=== PATIENT | male | born 1970 | race Caucasian/White ===

== ENCOUNTER 2020-02-16 23:16 | Emergency (ER) | payer OTHER ==
[~2020-02-16] VITALS: Ht 185.4 cm; Wt 140.9 kg
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
[2020-02-16] MEDS ORDERED: IBUP-1673 PO (23:59)
--- NOTE | 2020-02-17 00:48 | RAD ---
INDICATION: Reason: rue warmth. concern for DVT / Spl. Instructions: / History: COMPARISON: None. TECHNIQUE: Grayscale, color and doppler ultrasound images were obtained of the right upper extremity venous vasculature. RIGHT: No thrombus identified in the internal jugular, subclavian, axillary, brachial, basilic, cephalic, radial or ulnar veins. IMPRESSION: 1. No thrombus identified in deep venous system of right upper extremity. Electronically signed by: Shawn Araiza MD (02/17/2020 12:45 AM) [id number]
[2020-02-17 01:05] VITALS: BP 136/81
== END 2020-02-17 01:05 | disposition home or self-care (01) ==
LOC: ER 23:16
DX: M79.601 Pain in right arm (principal); E11.9 Type 2 diabetes mellitus without complications; J45.909 Unspecified asthma, uncomplicated
CPT/HCPCS: 93971; 99284-25

== ENCOUNTER 2021-05-11 20:59 | Emergency (ER) | payer OTHER ==
[2020-02-17 01:05] VITALS: BP_DIAS 81
[~2021-05-11] VITALS: Ht 185.4 cm; Wt 140.9 kg
[~2021-05-11 20:59] MED LIST: IBUP-1673 PO
[2021-05-11 21:00] VITALS: BP_SYST 140
--- NOTE | 2021-05-11 21:33 | PHYS DOC ---
Past History Past Medical History: Asthma, Diabetes Past Surgical History: Other Additional Past Surgical Histo: vasectomy, liposuction Alcohol Use: None Adult General Chief Complaint Chief Complaint: SHOULDER INJURY HPI HPI Patient is a 51-year-old male presenting for left shoulder pain. Reports pain is on the posterior aspect of glenohumeral joint. Onset was 2 weeks ago without any trauma, inciting event, mechanism of injury, exposure or other noteworthy event. Nothing known makes better, direct palpation and certain movements such as external rotation make worse. Patient reports pain is dull but during certain movements and direct pressure is sharp without radiation. Timing of symptoms has been waxing and waning since onset. States he was seen in outpatient setting by primary care physician and underwent a physical therapy session several days ago which left him sore and hurting more than he was before attending the session. He has taken intermittent aspirin without significant relief. Ongoing discomfort prompted him to come in for evaluation Review of Systems Review of Systems Fourteen body systems of review of systems have been reviewed. See HPI for pertinent positives and negative responses, other [place] all other systems are negative, non-pertinent or non-contributory Allergies Allergies Allergies Coded Allergies Type Severity Reaction Last Updated Verified No Known Drug Allergies 05/11/21 No Physical Exam Physical Exam Constitutional: Well developed, well nourished, no acute distress, non-toxic appearance. HENT: Normocephalic, atraumatic, bilateral external ears normal, oropharynx moist, no oral exudates, nose normal. Eyes: PERRLA, EOMI, conjunctiva normal, no discharge. Neck: Normal range of motion, no tenderness, supple, no stridor. Cardiovascular: Heart rate regular per monitor Lungs & Thorax: No respiratory distress or accessory muscle use, bilateral chest rise Abdomen: Abdomen soft, non-tender, bowel sounds present in all quadrants, no guarding or rebound, nonacute abdomen. Skin: Warm, dry, no erythema, no rash. Back: No tenderness, no CVA tenderness. Extremities: No tenderness, no cyanosis, no clubbing, ROM intact, no edema. No palpable and/or visual abnormalities to left shoulder. Pain over lateral edge of scapula and posterior portion of glenohumeral joint. 2+ radial pulses to bilateral upper extremities Neurologic: Alert and oriented X 3, medial radial and ulnar nerves of bilateral upper extremities intact, normal motor & sensory function, no focal deficits noted. Psychologic: Affect normal, judgement normal, mood normal. Current Patient Data Vital Signs Vital Signs Date Time Temp Pulse Resp B/P (MAP) Pulse Ox O2 Delivery O2 Flow Rate FiO2 05/11/21 21:00 98.2 97 20 140/ 96 Room Air EKG EKG [] Radiology/Procedures Radiology/Procedures Exam: Left shoulder 3 views INDICATION: Left posterior shoulder pain TECHNIQUE: Frontal view of the left shoulder with internal and external rotation and transscapular Y views Comparisons: None FINDINGS: Bone mineralization is normal. No acute or healed fractures. Soft tissues are unremarkable. Joint spaces are well-maintained. IMPRESSION: No acute osseous abnormality. Electronically signed by: Yolis Quinn MD (05/11/2021 10:13 PM) [facility] Heart Score C/O Chest Pain: No Risk Factors: Risk Factors: DM, Current or recent (<one month) smoker, HTN, HLP, family history of CAD, obesity. Risk Scores: Risk Factors: DM, Current or recent (<one month) smoker, HTN, HLP, family history of CAD, obesity. Course & Med Decision Making Course & Med Decision Making ABCs unremarkable HPI physical exam and radiograph left shoulder nonconcerning for any emergent or surgical issues Disclosed most likely diagnosis of musculoskeletal pain that is likely self- limiting in etiology. Continued supportive care practices, exercises and outpatient work-up advised given nonemergent nature of patient's complaint wi thout motor or sensory or neuro function changes Dragon Disclaimer Dragon Disclaimer This electronic medical record was generated, in whole or in part, using a voice recognition dictation system. Departure Departure: Impression: Primary Impression: Left shoulder pain Disposition: HOME / SELF CARE / HOMELESS Condition: STABLE Referrals: MARTIN DON DO (PCP) Additional Instructions: You were seen for musculoskeletal pain. You should return to the ED if you develop worsening pain, fever, numbness, tingling, weakness, or any other new or concerning symptoms. Your pain is most likely due to a muscle/ligamentous/tendon strain and should improve with ibuprofen and/or Tylenol for pain, stretching, and activity. Please contact your primary care physician to follow-up on this in outpatient setting is continued physical therapy with potential need for further diagnostic studies are recommended HALEY CRUM DO May 11, 2021 21:33
[2021-05-11] MEDS ORDERED: ACETAMINOPHEN 500 MG TABLET PO ONE (22:00)
--- NOTE | 2021-05-11 22:15 | RAD ---
Exam: Left shoulder 3 views INDICATION: Left posterior shoulder pain TECHNIQUE: Frontal view of the left shoulder with internal and external rotation and transscapular Y views Comparisons: None FINDINGS: Bone mineralization is normal. No acute or healed fractures. Soft tissues are unremarkable. Joint spa brock are well-maintained. IMPRESSION: No acute osseous abnormality. Electronically signed by: Yolis Quinn MD (05/11/2021 10:13 PM) [facility]
== END 2021-05-11 22:40 | disposition home or self-care (01) ==
LOC: ER 20:59
DX: M25.512 Pain in left shoulder (principal); J45.909 Unspecified asthma, uncomplicated; E11.9 Type 2 diabetes mellitus without complications
CPT/HCPCS: 73030; 99283-25